=== PATIENT | male | born 2000 | race Caucasian/White ===

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

== ENCOUNTER 2020-03-28 15:43 | Emergency (ER) | payer MEDICAID ==
[~2020-03-28 15:43] MED LIST: ALBUTEROL SULF8.5 GM INH; HYDROCODONE-A1 UDTA2 PO; KEFLEX500 MG PO
[2020-03-28 15:56] VITALS: BP 103/57; Ht 188 cm
[2020-03-28 16:49] LABS: BILIRUBIN NEGATIVE (NEGATIVE); KETONE NEGATIVE (NEGATIVE); NITRITE NEGATIVE (NEGATIVE); UROBILINOGEN NORMAL mg/dL (< 2)
[2020-03-28 16:59] LABS: BACTERIA MODERATE /HPF (NONE SEEN); EPITHELIAL CELLS OCC /hpf (0-5); WHITE CELLS - URINE 25-50 HPF (0-1)
== END 2020-03-28 17:10 | disposition home or self-care (01) ==
LOC: D.ER 15:43
PROVIDERS: Family Medicine
DX: R36.9 Urethral discharge, unspecified (principal); N39.0 Urinary tract infection, site not specified; A64 Unspecified sexually transmitted disease